=== PATIENT | female | born 2000 | race Caucasian/White ===

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

== ENCOUNTER → 2023-04-16 | Outpatient (CLI) | payer OTHER, SELFPAY ==
--- NOTE | 2023-04-16 11:15 | RAD_ITS ---
STUDY: X-RAY - LEFT FOOT CLINICAL: Female, 22 years old. PLANTAR FASCIITIS TECHNIQUE: 3 view(s) of the foot. COMPARISON: None. FINDINGS: Normal talus, calcaneus, and tarsal bones. Normal visualized subtalar, talonavicular, calcaneocuboid, tarsal and tarsometatarsal articulations. Normal metatarsi. Normal metatarsophalangeal joint of the great toe. Normal tibial and fibular sesamoid bones. Normal interphalangeal joint of the great toe. Normal phalanges of the great toe. Normal second through fifth metatarsophalangeal joints. Normal interphalangeal joints and phalanges of the lesser toes. The soft tissue structures are unremarkable. RAD/Foot min 3 Views IMPRESSION: Normal x-ray examination of the foot. Electronically Signed: Cal Topete MD at 17:35 EDT ,
== END | disposition home or self-care (01) ==
PROVIDERS: PCP Family Medicine; Referring Provider Family Medicine; Visit Provider Family Medicine
DX: M72.2 Plantar fascial fibromatosis (principal)
CPT/HCPCS: 73630

== ENCOUNTER 2023-05-02 08:09 | Outpatient (RCR) | payer OTHER, SELFPAY ==
--- NOTE | 2023-05-02 08:58 | HP.PTEVAL ---
Patient's Visit Information Visit Information Visit Information: SUZETTE SEAMAN is a 22 year old F referred to Physical Therapy by Luc Rodriguez MD with a diagnosis of L PF itis. Date of Evaluation: 05/02/23 Physical Therapist: Abiodun Styles, DPT, OCS, CSCS Visit Plan Frequency: 1-2x /Week Duration: 4-6 Weeks Plan: 1-2x/week for 3-6 weeks as needed for. 1. start with gastroc and soleus stretch first thing in am and 2x/day and keep ankle moving, wear supportive footwear and consider orthoitcs(these were given to him today. F/u 1-2 weeks to monitor effects and if not improving will consider US, sTM, rollout, stretching and progression to eccentric strength as needed, recomommend orthotics. Subjective Subjective: Intermittent L foot heel pain. Has had it for a month and no real reason why. If she sits for> 15 min and gets up it hurts, morning pain stabbing in heel with first 10 minutes. Mostly OK walking and throughout day 2/10 and 6/10 with sitting and getting up and 8/10 in am. Sleeping is OK. Activities are normal. Limps only for first few steps. No Hobbies: social Job: teaching on feet most of day. Pain L heel: Pain Intensity (Out of 10): 2 Pain Intensity Range: 2 and 8 Objective Objective: Walks without antalgia into PT I. Steps reciprocally without pain, Transfers easy and I bed and chair. 2 degree DF L ankle and 5 R, other ankle AROM WFL, no pain with any of them. 4/5 strength. knee and hip aROM WFL. PEs planus B L>R causing WB on inner calcaneus L. Tender minimmally today medial calcaneal PF attachment L only. reflexes 1/3 B patella and achilles. Balance/Special Test Scores Lower Extremity Functional Score: 67 Goals Goal 1:: Pain 0/10 in am exitting bed. Goal Time Frame: 2-4 Weeks Goal 2:: I appropriate management of condition Goal Time Frame: 2-4 Weeks Goal 3:: Pt feel 99% back to normal pain Goal Time Frame: 4-6 Weeks Rehabilitation Potential Physical Therapy Diagnosis: L plantar fasciitis with heel pain Rehabilitation Potential: Fair Anticipated Interventions Patient/Client Instruction: Educate patient on: Condition and Plan of Care For the Purpose of:: To decrease pain Therapeutic Exercise to Include: Strength training, Flexibilty training, Passive ROM and Active ROM For the Purpose of:: To decrease pain, To increase ROM and To improve nutrient delivery to tissue Manual Therapy Techniques to Include: Mobilization, Passive ROM and Soft tissue mobilization For the Purpose of:: To decrease pain, To decrease swelling/inflammation, To increase ROM and To improve nutrient delivery to tissue Cryotherapy (ice pack, ice massage): Yes Ultrasound (thermal/non thermal): Yes For the Purpose of:: To decrease pain and To increase ROM Text: Thank you for the opportunity to evaluate your patient. For Medicare and Medicare HMO plans, please review the plan of care and approve it. It will need to be FAXED BACK to us at [phone] for Medicare purposes. For Medicare only, by signing this I certify the plan of care. Please let me know if there are questions or concerns regarding this plan of care. Physician Signature: Date:
--- NOTE | 2023-06-17 10:37 | HP.PT.NRP ---
Patient Information Patient Information: SUZETTE SEAMAN was seen in my office for initial evaluation on 05/02/23. The following Plan of Care was established for this patient: POC Established Initial Frequency: 1-2x /Week Initial Duration: 4-6 Weeks Anticipated Interventions Patient/Client Instruction: Educate patient on: Condition and Plan of Care For the Purpose of:: To decrease pain Therapeutic Exercise to Include: Strength training, Flexibilty training, Passive ROM and Active ROM For the Purpose of:: To decrease pain, To increase ROM and To improve nutrient delivery to tissue Manual Therapy Techniques to Include: Mobilization, Passive ROM and Soft tissue mobilization For the Purpose of:: To decrease pain, To decrease swelling/inflammation, To increase ROM and To improve nutrient delivery to tissue Cryotherapy (ice pack, ice massage): Yes Ultrasound (thermal/non thermal): Yes For the Purpose of:: To decrease pain and To increase ROM Last Seen Last Seen: This patient was last seen in our office 05/02/23. Pertinent comments regarding their Physical therapy will appear below: Pt seen one visit for eval and POC established. Pt cancelled remaining visits. At this point, it has been over 6 weeks and I will discontinue due to nonattendance. At this point I will be discontinuing this patient from physical therapy. I would be happy to see this patient again in the future if found appropriate by the physician. Thank you! Abiodun Styles, DPT, OCS, CSCS Balance/Gait/Functional tests Balance/Special Test Scores Lower Extremity Functional Score: 67
== END 2023-05-02 19:00 | disposition home or self-care (01) ==
LOC: PT 08:09
PROVIDERS: PCP Family Medicine; Referring Provider Family Medicine; Visit Provider Family Medicine
DX: M72.2 Plantar fascial fibromatosis (principal)
CPT/HCPCS: 97110; 97161

== ENCOUNTER → 2023-11-26 | Outpatient (CLI) | payer OTHER, SELFPAY ==
[2023-11-26 15:38] LABS: Hematocrit 43.1 % (37-47); Mean Corp Hgb Conc 32.5 g/dL (32-36); Mean Corpuscular Hgb 27.7 pg (27.0-32.0); Mean Corpuscular Volume 85.2 fL (81-99); Mean Platelet Vol. 10.1 fl (6.2-12.0); Platelet Count 389 K/mm3 (150-450); RBC Distribution Width SD 37.2 fl (35.1-43.9); Red Blood Count 5.06 M/mm3 (4.2-5.4); White Blood Count 9.8 K/mm3 (4.4-11.0)
[2023-11-26 16:00] LABS: Vitamin B12 366 pg/mL (211-911); Vitamin D,25 Hydroxy 16.5 ng/mL
[2023-11-26 19:00] LABS: ALB/GLOB Ratio 0.8 RATIO (0.9-2.4); AST(SGOT) 31 U/L (15-37); Alanine Aminotransfer ALT/SGPT 55 U/L (13-56); Albumin, Serum 3.6 g/dL (3.2-5.0); Alkaline Phosphatase 75 U/L (45-117); Anion Gap 5 (5-15); BUN 12 mg/dL (7-18); BUN/Creat Ratio 14.8 RATIO (10-20); Calcium,Total 9.4 mg/dL (8.5-10.1); Chloride 109 mmol/L (98-107); Cholesterol 172 mg/dL (200); Creatinine, Serum 0.81 mg/dL (0.55-1.02); EST Glomerular Filtration Rate 92 mL/min (>60); Est Glom Filt Rate - Afr Amer 111 mL/min (>60); Estradiol 45.1 pg/mL; Ferritin 113 ng/mL (8-252); Follicle Stimulating Hormone 7.2 mIU/mL; Globulin 4.4 g/dL (2.2-4.2); Glucose 80 mg/dL (74-106); High Density Lipoprotein 37 mg/dL; Iron 78 ug/dL (50-170); Luteinizing Hormone 11.4 mIU/mL; Potassium 3.9 mmol/L (3.5-5.1); Sodium Level 141 mmol/L (136-145); Thyroid Stim Hormone (TSH) 1.24 uIU/mL (0.358-3.74); Triglycerides 107 mg/dL; Very Low Density Lipoprotein 21 mg/dL (5-40)
== END | disposition home or self-care (01) ==
PROVIDERS: PCP Family Medicine; Referring Provider Family Medicine; Visit Provider Family Medicine
DX: R53.83 Other fatigue (principal)
CPT/HCPCS: 36415; 80053; 80061; 82306; 82533; 82607; 82627; 82670; 82728; 83001; 83002; 83540; 84403; 84443; 85027; 82626

== ENCOUNTER → 2024-03-11 | Outpatient (CLI) | payer OTHER, SELFPAY ==
[2024-03-19 13:50] LABS: HPV Reflexed? NOT INDICATED
== END | disposition home or self-care (01) ==
PROVIDERS: PCP Family Medicine; Referring Provider Nurse Practitioner Family; Visit Provider Nurse Practitioner Family
DX: Z12.4 Encounter for screening for malignant neoplasm of cervix (principal)
CPT/HCPCS: 88175; G0145

== ENCOUNTER → 2024-03-23 | Outpatient (CLI) | payer OTHER, SELFPAY ==
--- NOTE | 2024-03-23 15:48 | US_ITS ---
STUDY: ULTRASOUND OF THE FEMALE PELVIS - LIMITED REASON FOR EXAM: Female, 23 years old PCOS TECHNIQUE: Transabdominal and Transvaginal TECHNICAL QUALITY: Adequate. COMPARISON: None. FINDINGS: The uterus is anteverted and is in a midline position. The uterus measures 6.4 x 3.1 x 2.9 cm. Normal uterine cervix. The endometrium measures 3.4 mm in thickness, and is hyperechoic. There is no demonstrated endometrial mass. There is no demonstrated myometrial mass. The right ovary measures 2.3 cm x 2.4 cm x 2.1 cm. There is no right ovarian cyst or ovarian mass. There is no visualized right adnexal mass or complex lesion. There is normal arterial and normal venous vascularity. The left ovary measures 2.2 cm x 2.2 cm x 2.6 cm. There is no left ovarian cyst or ovarian mass. There is no visualized left adnexal mass or complex lesion. There is normal arterial and normal venous vascularity. There is no fluid in the cul-de-sac. US/Pelvic w/ Transvaginal IMPRESSION: Normal female pelvis. Electronically Signed: Nestor Marie MD at 15:58 EDT ,
== END | disposition home or self-care (01) ==
PROVIDERS: PCP Family Medicine; Referring Provider Nurse Practitioner Family; Visit Provider Nurse Practitioner Family
DX: E28.2 Polycystic ovarian syndrome (principal)
CPT/HCPCS: 76830; 76856